=== PATIENT | female | born 1995 | race Caucasian/White ===

== ENCOUNTER → 2016-09-15 | Outpatient (CLI) | payer OTHER ==
[~2016-09-15] MED LIST: ANXIETY MED; FLEXERIL; IBUPROFEN800 MG PO; NAPROXEN
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
== END | disposition home or self-care (01) ==
LOC: CMRI 07:23
DX: M25.571 Pain in right ankle and joints of right foot (principal); R93.7 Abnormal findings on diagnostic imaging of other parts of musculoskeletal system
CPT/HCPCS: 73721